=== PATIENT | male | born 1940 ===

== ENCOUNTER 2020-06-03 13:35 | Outpatient (CLI) | payer MEDICARE, OTHER, SELFPAY ==
--- NOTE | ~2020-06-03 | CT_ITS ---
EXAMINATION: CT abdomen pelvis wo con DATE: 06/03/2020 15:08 INDICATION: Left ureteral stone TECHNIQUE: Computed tomography (CT) of the abdomen and pelvis was performed without intravenous contr ast. The dose-length product was 667.99 mGy-cm. Automated exposure control and iterative reconstructi on technique were employed. COMPARISON: CT dated 09/23/2014. FINDINGS: Stable appearance to multiple exostosis of the ribs, likely benign. Heart size normal. Trac e left pleural effusion. No significant pericardial effusion. There is atherosclerosis. No evidence f or aneurysm. The liver, spleen, pancreas, adrenal glands and right kidney are unremarkable. There are low-density lesions in the left kidney, most likely benign cysts. There is layering milk of calcium in one of the se lesions consistent with a cyst. There is left perinephric and periureteral edema with left hydrour eteronephrosis. No obstructing stone identified. Cannot exclude ascending urinary tract infection or recently passed stone. Bladder is unremarkable. Prostate gland is enlarged. There is ankylosis of the sacroiliac joints. Multiple exostosis noted from the pelvis as well. No acute osseous abnormality. T here is mild retroperitoneal lymphadenopathy, likely reactive. Nonobstructive bowel gas pattern. IMPRESSION: 1. Left hydroureteronephrosis without evidence for obstructing stone or mass. There is associated per iureteral and perinephric edema. Consider ascending urinary tract infection or recently passed stone. 2: Trace left pleural effusion. Reviewed, dictated and finalized at location A. CLAIM REPRESENTATIVE IMPRESSION: 1. Left hydroureteronephrosis without evidence for obstructing stone or mass. T here is associated periureteral and perinephric edema. Consider ascending urina ry tract infection or recently passed stone. 2: Trace left pleural effusion.
[2020-06-03 14:33] LABS: Estimated Glomerular Filt Rate 45
== END 2020-06-03 13:36 | disposition home or self-care (01) ==
LOC: ANHIMG 13:50
PROVIDERS: PCP Family Medicine; Visit Provider Urology
DX: N20.1 Calculus of ureter (principal); N13.30 Unspecified hydronephrosis; J90 Pleural effusion, not elsewhere classified
CPT/HCPCS: 74176